=== PATIENT | female | born 1955 | race Caucasian/White ===

== ENCOUNTER 2016-09-25 10:06 | Emergency (ER) | payer OTHER ==
[2016-09-25 11:36] VITALS: BP 149/87
== END 2016-09-25 12:00 | disposition home or self-care (01) ==
LOC: ED 10:06
DX: R51 Headache (principal); I10 Essential (primary) hypertension
CPT/HCPCS: J1885

== ENCOUNTER 2016-09-30 07:11 | Emergency (ER) | payer OTHER ==
[2016-09-30 08:58] VITALS: BP 146/79
== END 2016-09-30 08:58 | disposition home or self-care (01) ==
LOC: ED 07:11
DX: S93.492A Sprain of other ligament of left ankle, initial encounter (principal); M77.32 Calcaneal spur, left foot; I10 Essential (primary) hypertension; X50.1XXA Overexertion from prolonged static or awkward postures, initial encounter; Y93.01 Activity, walking, marching and hiking; Y99.8 Other external cause status; Y92.89 Other specified places as the place of occurrence of the external cause
CPT/HCPCS: Q0092

== ENCOUNTER 2017-09-20 02:24 | Emergency (ER) | payer OTHER ==
[~2017-09-20] VITALS: Ht 165.1 cm; Wt 106.6 kg
[2017-09-20 02:29] VITALS: Ht 165.1 cm; Wt 106.6 kg
[2017-09-20 03:54] LABS: BASOPHIL % 0.5 % (0-2); PLATELET COUNT 199 x10^3mcL (130-400); RED CELL DISTRIBUTION WIDTH 14.4 % (11.5-14.5)
[2017-09-20 03:57] LABS: CALCIUM 9.1 mg/dL (8.5-10.1); CHLORIDE SERUM 104 mmol/L (98-107); GLUCOSE SERUM 108 mg/dL (74-106); POTASSIUM SERUM 3.8 mmol/L (3.5-5.1); SODIUM SERUM 140 mmol/L (136-145)
[2017-09-20 04:01] LABS: ALKALINE PHOSPHATASE 69 U/L (46-116); ALT/SGPT 29 U/L (14-59); AMYLASE 50 U/L (25-115); AST/SGOT 17 U/L (15-37); BILIRUBIN TOTAL 0.33 mg/dL (0.20-1.00); LIPASE 168 IU/L (73-393); TOTAL PROTEIN, SERUM 7.4 g/dL (6.4-8.2)
[2017-09-20 04:07] LABS: ALBUMIN 3.3 g/dL (3.4-5.0); CREATININE SERUM 0.7 mg/dL (0.6-1.0); GFR1 > 60 mL/min
[2017-09-20 04:43] VITALS: BP 140/86
[2017-09-20 04:49] LABS: UA SPECIFIC GRAVITY <=1.005 (1.005-1.035); microscopic required? YES; urine erythrocyte 1+ (NEGATIVE)
== END 2017-09-20 04:43 | disposition home or self-care (01) ==
LOC: ED 02:24
PROVIDERS: Emergency Medicine
DX: N39.0 Urinary tract infection, site not specified (principal); I10 Essential (primary) hypertension
CPT/HCPCS: 36415; Q0162

== ENCOUNTER 2018-08-09 20:57 | Emergency (ER) | payer OTHER ==
[~2018-08-09] VITALS: Ht 165.1 cm; Wt 104.3 kg
[2018-08-09 21:19] VITALS: Ht 165.1 cm; Wt 104.3 kg
[2018-08-09 22:43] LABS: BASOPHIL % 0.4 % (0-2); PLATELET COUNT 201 x10^3mcL (130-400)
[2018-08-09 22:47] LABS: RED CELL DISTRIBUTION WIDTH 14.6 % (11.5-14.5)
[2018-08-09 22:48] LABS: CARBON DIOXIDE 31.3 mmol/L (21-32); CHLORIDE SERUM 103 mmol/L (98-107); CREATININE SERUM 0.7 mg/dL (0.6-1.0); GFR1 > 60 mL/min; GLUCOSE SERUM 101 mg/dL (74-106); POTASSIUM SERUM 4.2 mmol/L (3.5-5.1); SODIUM SERUM 139 mmol/L (136-145)
[2018-08-09 22:53] LABS: ALBUMIN 3.5 g/dL (3.4-5.0); ALKALINE PHOSPHATASE 61 U/L (46-116); ALT/SGPT 23 U/L (14-59); AST/SGOT 16 U/L (15-37); BILIRUBIN TOTAL 0.2 mg/dL (0.20-1.00); TOTAL PROTEIN, SERUM 7.3 g/dL (6.4-8.2)
[2018-08-09 23:00] LABS: microscopic required? YES; urine erythrocyte 3+ (NEGATIVE)
[2018-08-10 01:11] VITALS: BP 134/86
== END 2018-08-10 01:11 | disposition home or self-care (01) ==
LOC: ED 20:57
PROVIDERS: Emergency Medicine
DX: R31.9 Hematuria, unspecified (principal); I10 Essential (primary) hypertension; F32.9 Major depressive disorder, single episode, unspecified; F41.9 Anxiety disorder, unspecified; Z90.710 Acquired absence of both cervix and uterus
CPT/HCPCS: 36415